=== PATIENT | male | born 1950 | race African-American/Black ===

== ENCOUNTER 2022-09-14 14:40 | Inpatient (IN) ==
[2022-09-14] MEDS ORDERED: ONDANSETRON 4 MG/2 ML VIAL IV STA (14:49)
[2022-09-14] MEDS ORDERED: SODIUM CHLORIDE 0.9% 1,000 ML IV STA (14:49)
[2022-09-14 16:12] LABS: Basophils % 0.1 % (0.0-0.8); Hematocrit 30.5 VOL% (42.0-52.0); Hemoglobin 10.2 GM/DL (14.0-18.0); Immature Granulocytes % 1.5 %; Immature Granulocytes Absolute 0.24 #; Lymphocytes # 1.1 10*3/uL (1.4-4.0); Lymphocytes % 6.6 % (21.2-54.2); Mean Corpuscular HGB Conc 33.4 GM/DL (32-36); Mean Corpuscular Volume 90.2 FL (87-102); Mean Platelet Volume 12.5 FL (9.6-12.0); Monocytes # 1.3 10*3/uL (0.11-0.8); Monocytes % 8.2 % (1.7-12.7); Neutrophils % 83.6 % (38.7-73.9); Platelet Count 146 T/CUMM (130-400); Red Blood Count 3.38 MC/CUMM (3.8-5.5); Red Cell Distribution Width 14.5 % (9.3-17.3); White Blood Count 16.2 T/CUMM (4-12)
[2022-09-14 16:31] LABS: Bacteria,Urine Occasional /HPF (Few); Bilirubin,Urine Negative (Negative); Blood, Urine Small mg/dL (Negative); Glucose,Urine (UA) Negative (Negative); Hyaline Casts,Urine 38 /LPF (0-3); Ketones,Urine Negative (Negative); Mucus,Urine Occasional /LPF (Occasional); Nitrite,Urine Negative (Negative); Protein,Urine 30 mg/dL (Negative); RBC,Urine 4 /HPF (0-4); Squamous Epithelial Cell,Urine Occasional /HPF (0-10); Urine Appearance Slightly Hazy (Clear); Urine Color Amber (Yellow); Urine Specific Gravity 1.013 (1.001-1.035)
[2022-09-14 16:33] LABS: Albumin 2.6 G/DL (3.4-5.0); Bilirubin,Total 2.9 MG/DL (0.20-1.00); Calcium 8.6 MG/DL (8.5-10.1); Osmolality,Calculated 298.3 MOS/KG (273-304); Potassium 3.8 MMOL/L (3.5-5.1); Total Protein 6.4 G/DL (6.4-8.2)
[2022-09-14] MEDS ORDERED: DOCUSATE SODIUM 100 MG CAPSULE PO PRN (17:44)
[2022-09-14] MEDS ORDERED: hydrALAZINE 20 MG/1 ML VIAL IV PRN (17:44)
[2022-09-14] MEDS ORDERED: ONDANSETRON 4 MG/2 ML VIAL IV PRN (17:44)
[2022-09-14] MEDS ORDERED: ACETAMINOPHEN 325 MG TABLET PO PRN (17:44)
[2022-09-14] MEDS ORDERED: cloNIDine 0.1 MG TABLET PO PRN (17:48)
[2022-09-14 20:32] LABS: Thyroid Stimulating Hormone 1.89 uIU/ml (0.358-3.74)
[2022-09-14] MEDS: PANTOPRAZOLE 40 MG TABLET PO SCH (21:26)
[2022-09-14] MEDS: carvediloL 25 MG TABLET PO SCH (21:26)
[2022-09-14] MEDS: HEPARIN 5,000 UNIT/1 ML VIAL SUBCUT SCH (21:27)
[2022-09-14] MEDS: LACTATED RINGERS 1,000 ML IV SCH (21:28)
[2022-09-15] MEDS: LACTATED RINGERS 1,000 ML IV SCH ×3 (04:08→17:09)
[2022-09-15 06:26] LABS: Basophils % 0.1 % (0.0-0.8); Eosinophils % 0.3 % (0.00-10.9); Hematocrit 27.7 VOL% (42.0-52.0); Hemoglobin 9.4 GM/DL (14.0-18.0); Immature Granulocytes % 0.7 %; Immature Granulocytes Absolute 0.09 #; Lymphocytes # 1.4 10*3/uL (1.4-4.0); Lymphocytes % 11.1 % (21.2-54.2); Mean Corpuscular HGB Conc 33.9 GM/DL (32-36); Mean Corpuscular Volume 90.5 FL (87-102); Monocytes % 7.8 % (1.7-12.7); Platelet Count 150 T/CUMM (130-400); Red Blood Count 3.06 MC/CUMM (3.8-5.5); Red Cell Distribution Width 14.7 % (9.3-17.3); White Blood Count 12.8 T/CUMM (4-12)
[2022-09-15 06:46] LABS: Albumin 2.3 G/DL (3.4-5.0); Bilirubin,Total 1.5 MG/DL (0.20-1.00); Calcium 9.2 MG/DL (8.5-10.1); Potassium 3.8 MMOL/L (3.5-5.1); Total Protein 6.7 G/DL (6.4-8.2)
[2022-09-15 08:25] LABS: AFP Tumor 4.9 NG/ML (0-8); Cancer Antigen 19-9 186.84 U/ML (0-35)
[2022-09-15] MEDS: carvediloL 25 MG TABLET PO SCH ×2 (08:27→21:32)
[2022-09-15] MEDS: PANTOPRAZOLE 40 MG TABLET PO SCH ×2 (08:27→21:32)
[2022-09-15] MEDS: ASPIRIN EC 81 MG TABLET PO SCH (08:28)
[2022-09-15] MEDS: HEPARIN 5,000 UNIT/1 ML VIAL SUBCUT SCH ×2 (08:28→21:32)
[2022-09-15 11:57] LABS: Hepatitis B Core IgM Quant 0.05 Index; Hepatitis B Surface Ag Quant 0.13 Index; Hepatitis B Surface Ag Result Non-Reactive (NonReactive); Hepatitis C Virus Ab Quant < 0.02 Index; Hepatitis C Virus Ab Result Non-Reactive (NonReactive)
[2022-09-15] MEDS ORDERED: DIAZEPAM 5 MG TABLET PO ONE (12:44)
[2022-09-15] MEDS: diphenhydrAMINE CAP 25 MG CAPSULE PO PRN (23:36)
[2022-09-16] MEDS: LACTATED RINGERS 1,000 ML IV SCH ×2 (03:10→09:05)
[2022-09-16 05:27] LABS: Basophils % 0.2 % (0.0-0.8); Eosinophils # 0.1 10*3/uL (0.0-0.87); Eosinophils % 0.6 % (0.00-10.9); Hematocrit 28.4 VOL% (42.0-52.0); Hemoglobin 9.3 GM/DL (14.0-18.0); Immature Granulocytes % 0.6 %; Immature Granulocytes Absolute 0.05 #; Lymphocytes # 1.1 10*3/uL (1.4-4.0); Lymphocytes % 13.7 % (21.2-54.2); Mean Corpuscular HGB Conc 32.7 GM/DL (32-36); Mean Corpuscular Volume 92.2 FL (87-102); Mean Platelet Volume 12.4 FL (9.6-12.0); Monocytes # 0.5 10*3/uL (0.11-0.8); Monocytes % 5.9 % (1.7-12.7); Platelet Count 153 T/CUMM (130-400); Red Blood Count 3.08 MC/CUMM (3.8-5.5); Red Cell Distribution Width 14.8 % (9.3-17.3); White Blood Count 8.1 T/CUMM (4-12)
[2022-09-16 05:49] LABS: Albumin 2.2 G/DL (3.4-5.0); Bilirubin,Total 1.2 MG/DL (0.20-1.00); Calcium 9.1 MG/DL (8.5-10.1); Osmolality,Calculated 297.7 MOS/KG (273-304); Potassium 3.8 MMOL/L (3.5-5.1); Total Protein 6.5 G/DL (6.4-8.2)
[2022-09-16] MEDS: diphenhydrAMINE CAP 25 MG CAPSULE PO PRN ×3 (05:55→19:42)
[2022-09-16] MEDS: carvediloL 25 MG TABLET PO SCH ×2 (09:00→21:36)
[2022-09-16] MEDS: PANTOPRAZOLE 40 MG TABLET PO SCH ×2 (09:00→21:36)
[2022-09-16] MEDS: ASPIRIN EC 81 MG TABLET PO SCH (09:00)
[2022-09-16] MEDS: HEPARIN 5,000 UNIT/1 ML VIAL SUBCUT SCH ×2 (09:00→21:36)
[2022-09-16 10:09] LABS: INR 1.1; PT Patient Result 11.7 SECS (10.1-12.1)
[2022-09-17] MEDS: LACTATED RINGERS 1,000 ML IV SCH (00:59)
[2022-09-17 05:52] LABS: Basophils % 0.1 % (0.0-0.8); Eosinophils # 0.1 10*3/uL (0.0-0.87); Eosinophils % 1.5 % (0.00-10.9); Hematocrit 28.9 VOL% (42.0-52.0); Hemoglobin 9.4 GM/DL (14.0-18.0); Immature Granulocytes % 0.9 %; Immature Granulocytes Absolute 0.07 #; Lymphocytes # 1.2 10*3/uL (1.4-4.0); Lymphocytes % 15.4 % (21.2-54.2); Mean Corpuscular HGB Conc 32.5 GM/DL (32-36); Mean Platelet Volume 12.7 FL (9.6-12.0); Monocytes # 0.5 10*3/uL (0.11-0.8); Monocytes % 6.5 % (1.7-12.7); Neutrophils % 75.6 % (38.7-73.9); Platelet Count 165 T/CUMM (130-400); Red Blood Count 3.14 MC/CUMM (3.8-5.5); Red Cell Distribution Width 14.7 % (9.3-17.3)
[2022-09-17 06:21] LABS: Albumin 2.4 G/DL (3.4-5.0); Bilirubin,Total 1.1 MG/DL (0.20-1.00); Calcium 9.2 MG/DL (8.5-10.1); Osmolality,Calculated 293.7 MOS/KG (273-304); Potassium 3.7 MMOL/L (3.5-5.1); Total Protein 6.7 G/DL (6.4-8.2)
[2022-09-17 07:51] VITALS: BP 176/80
[2022-09-17] MEDS: ASPIRIN EC 81 MG TABLET PO SCH (09:31)
[2022-09-17] MEDS: HEPARIN 5,000 UNIT/1 ML VIAL SUBCUT SCH (09:31)
[2022-09-17] MEDS: carvediloL 25 MG TABLET PO SCH (09:32)
[2022-09-17] MEDS: PANTOPRAZOLE 40 MG TABLET PO SCH (09:32)
== END 2022-09-17 12:59 | disposition home health service (06) | DRG 435 ==
LOC: EDBD → N.ED 14:40 → SUATTDRO 17:28 → N.EDINP 17:28 → N.3E 20:06
PROVIDERS: ADMIT Internal Medicine; ATTEND Internal Medicine

== ENCOUNTER 2022-10-03 17:37 | Inpatient (IN) ==
[2022-10-03] MEDS ORDERED: MORPHINE 2 MG/1 ML SYRINGE IV ONE (18:00)
[2022-10-03] MEDS ORDERED: SODIUM CHLORIDE 0.9% 500 ML IV STA (18:00)
[2022-10-03] MEDS ORDERED: ONDANSETRON 4 MG/2 ML VIAL IV ONE (18:00)
[2022-10-03 18:31] LABS: Basophils % 0.2 % (0.0-0.8); Eosinophils % 0.1 % (0.00-10.9); Hematocrit 26.1 VOL% (42.0-52.0); Hemoglobin 8.4 GM/DL (14.0-18.0); Immature Granulocytes % 1.2 %; Immature Granulocytes Absolute 0.22 #; Lymphocytes # 1.5 10*3/uL (1.4-4.0); Lymphocytes % 8.2 % (21.2-54.2); Mean Corpuscular HGB Conc 32.2 GM/DL (32-36); Mean Corpuscular Volume 92.6 FL (87-102); Mean Platelet Volume 12.2 FL (9.6-12.0); Monocytes # 2.2 10*3/uL (0.11-0.8); Monocytes % 12.2 % (1.7-12.7); NRBC # 0.02 10*3/uL; Neutrophils % 78.1 % (38.7-73.9); Platelet Count 210 T/CUMM (130-400); Red Blood Count 2.82 MC/CUMM (3.8-5.5); Red Cell Distribution Width 15.1 % (9.3-17.3); White Blood Count 17.9 T/CUMM (4-12)
[2022-10-03 18:42] LABS: INR 1.3
[2022-10-03 18:54] LABS: Albumin 2.4 G/DL (3.4-5.0); Bilirubin,Total 1.7 MG/DL (0.20-1.00); Potassium 3.9 MMOL/L (3.5-5.1); Total Protein 7.2 G/DL (6.4-8.2)
[2022-10-03] MEDS ORDERED: PIPERACILLIN/TAZOBACTAM 3,375 MG in SODIUM CHLORIDE 0.9% 100 ML IV STA (19:31)
[2022-10-03] MEDS ORDERED: cloNIDine 0.1 MG TABLET PO PRN (20:06)
[2022-10-03] MEDS ORDERED: ONDANSETRON 4 MG/2 ML VIAL IV PRN (20:16)
[2022-10-03] MEDS ORDERED: GLUCAGON 1 MG VIAL IM PRN (20:16)
[2022-10-03] MEDS ORDERED: hydrALAZINE 20 MG/1 ML VIAL IV PRN (20:16)
[2022-10-03] MEDS ORDERED: carvediloL 25 MG TABLET PO SCH (21:00)
[2022-10-03] MEDS: LACTATED RINGERS 1,000 ML IV SCH (21:21)
[2022-10-03] MEDS: INSULIN LISPRO 100 UNIT/ML SUBCUT SCH (21:22)
[2022-10-03] MEDS: HEPARIN 5,000 UNIT/1 ML VIAL SUBCUT SCH (21:27)
[2022-10-03] MEDS: MORPHINE 2 MG/1 ML SYRINGE IV PRN (22:28)
[2022-10-04] MEDS: MORPHINE 2 MG/1 ML SYRINGE IV PRN ×2 (02:14→11:57)
[2022-10-04] MEDS: PIPERACILLIN/TAZOBACTAM 3,375 MG in SODIUM CHLORIDE 0.9% 100 ML IV SCH ×3 (04:15→20:13)
[2022-10-04 05:10] LABS: Basophils % 0.2 % (0.0-0.8); Eosinophils % 0.2 % (0.00-10.9); Hematocrit 24.8 VOL% (42.0-52.0); Hemoglobin 7.8 GM/DL (14.0-18.0); Immature Granulocytes % 1.5 %; Immature Granulocytes Absolute 0.28 #; Lymphocytes # 1.5 10*3/uL (1.4-4.0); Lymphocytes % 8.3 % (21.2-54.2); Mean Corpuscular HGB Conc 31.5 GM/DL (32-36); Mean Corpuscular Volume 94.3 FL (87-102); Mean Platelet Volume 11.7 FL (9.6-12.0); Monocytes # 2.2 10*3/uL (0.11-0.8); Monocytes % 12.2 % (1.7-12.7); NRBC # 0.02 10*3/uL; Neutrophils % 77.6 % (38.7-73.9); Platelet Count 179 T/CUMM (130-400); Red Blood Count 2.63 MC/CUMM (3.8-5.5); Red Cell Distribution Width 15.2 % (9.3-17.3); White Blood Count 18.4 T/CUMM (4-12)
[2022-10-04 05:28] LABS: Albumin 2.2 G/DL (3.4-5.0); Bilirubin,Total 1.8 MG/DL (0.20-1.00); Calcium 9.1 MG/DL (8.5-10.1); Osmolality,Calculated 296.8 MOS/KG (273-304); Potassium 4.3 MMOL/L (3.5-5.1)
[2022-10-04] MEDS: INSULIN LISPRO 100 UNIT/ML SUBCUT SCH ×2 (08:03→17:32)
[2022-10-04] MEDS ORDERED: FUROSEMIDE 40 MG TABLET PO SCH (09:00)
[2022-10-04] MEDS: ISOSORBIDE MONONITRATE 30 MG TABLET PO SCH (10:10)
[2022-10-04] MEDS: carvediloL 25 MG TABLET PO SCH ×2 (10:11→17:32)
[2022-10-04] MEDS: PANTOPRAZOLE 40 MG VIAL IV SCH (10:11)
[2022-10-04] MEDS: HEPARIN 5,000 UNIT/1 ML VIAL SUBCUT SCH ×2 (10:11→20:14)
[2022-10-04] MEDS: LACTATED RINGERS 1,000 ML IV SCH ×2 (10:42→18:42)
[2022-10-04 11:58] LABS: Amorphous Crystals,Urine Many /HPF (Few); RBC,Urine 2 /HPF (0-4)
[2022-10-04 11:59] LABS: Urine Color Dark yellow (Yellow)
[2022-10-04 12:00] LABS: Bilirubin,Urine Small mg/dL (Negative); Blood, Urine Negative (Negative); Glucose,Urine (UA) Negative (Negative); Ketones,Urine Trace mg/dL (Negative); Nitrite,Urine Negative (Negative); Protein,Urine 100 mg/dL (Negative); Urine Appearance Turbid (Clear); Urine Specific Gravity 1.025 (1.001-1.035); Urine Urobilinogen < 2.0 eU/dL (<2.0); Urine pH 5.5 (4.5-8.0)
[2022-10-04] MEDS ORDERED: DIAZEPAM 5 MG TABLET PO ONE (14:52)
[2022-10-04] MEDS ORDERED: MIDAZOLAM 2 MG/2 ML VIAL IV ONE (14:53)
[2022-10-04] MEDS ORDERED: fentaNYL 100 MCG/2 ML VIAL IV ONE (14:53)
[2022-10-05] MEDS: PIPERACILLIN/TAZOBACTAM 3,375 MG in SODIUM CHLORIDE 0.9% 100 ML IV SCH ×3 (04:26→20:33)
[2022-10-05 05:16] LABS: Basophils % 0.2 % (0.0-0.8); Eosinophils # 0.1 10*3/uL (0.0-0.87); Eosinophils % 0.3 % (0.00-10.9); Hematocrit 24.1 VOL% (42.0-52.0); Hemoglobin 7.7 GM/DL (14.0-18.0); Immature Granulocytes % 1.9 %; Immature Granulocytes Absolute 0.28 #; Lymphocytes # 1.7 10*3/uL (1.4-4.0); Lymphocytes % 11.2 % (21.2-54.2); Mean Corpuscular Volume 91.6 FL (87-102); Mean Platelet Volume 12.9 FL (9.6-12.0); Monocytes # 1.5 10*3/uL (0.11-0.8); NRBC # 0.05 10*3/uL; Neutrophils % 76.4 % (38.7-73.9); Platelet Count 196 T/CUMM (130-400); Red Blood Count 2.63 MC/CUMM (3.8-5.5); Red Cell Distribution Width 15.5 % (9.3-17.3); White Blood Count 14.8 T/CUMM (4-12)
[2022-10-05] MEDS: LACTATED RINGERS 1,000 ML IV SCH ×3 (05:33→22:39)
[2022-10-05 05:42] LABS: Bilirubin,Total 1.9 MG/DL (0.20-1.00); Calcium 8.8 MG/DL (8.5-10.1); Osmolality,Calculated 301.7 MOS/KG (273-304); Potassium 4.3 MMOL/L (3.5-5.1); Total Protein 6.8 G/DL (6.4-8.2)
[2022-10-05] MEDS: carvediloL 25 MG TABLET PO SCH ×2 (08:11→16:09)
[2022-10-05] MEDS: PANTOPRAZOLE 40 MG VIAL IV SCH (08:11)
[2022-10-05] MEDS: ISOSORBIDE MONONITRATE 30 MG TABLET PO SCH (08:11)
[2022-10-05] MEDS: HEPARIN 5,000 UNIT/1 ML VIAL SUBCUT SCH ×2 (08:12→20:37)
[2022-10-05] MEDS: INSULIN LISPRO 100 UNIT/ML SUBCUT SCH ×2 (08:29→17:04)
[2022-10-05] MEDS: MORPHINE 2 MG/1 ML SYRINGE IV PRN (11:14)
[2022-10-05] MEDS: diphenhydrAMINE 50 MG/1 ML VIAL IV PRN (16:10)
[2022-10-06] MEDS: PIPERACILLIN/TAZOBACTAM 3,375 MG in SODIUM CHLORIDE 0.9% 100 ML IV SCH ×3 (04:12→20:28)
[2022-10-06] MEDS: MORPHINE 2 MG/1 ML SYRINGE IV PRN ×2 (05:43→14:37)
[2022-10-06 06:01] LABS: Basophils % 0.2 % (0.0-0.8); Eosinophils # 0.1 10*3/uL (0.0-0.87); Eosinophils % 0.6 % (0.00-10.9); Hematocrit 23.1 VOL% (42.0-52.0); Hemoglobin 7.2 GM/DL (14.0-18.0); Immature Granulocytes % 2.4 %; Immature Granulocytes Absolute 0.33 #; Lymphocytes # 1.2 10*3/uL (1.4-4.0); Lymphocytes % 8.8 % (21.2-54.2); Mean Corpuscular HGB Conc 31.2 GM/DL (32-36); Mean Corpuscular Volume 91.7 FL (87-102); Mean Platelet Volume 12.4 FL (9.6-12.0); Monocytes # 1.4 10*3/uL (0.11-0.8); Monocytes % 9.7 % (1.7-12.7); NRBC # 0.03 10*3/uL; Neutrophils % 78.3 % (38.7-73.9); Platelet Count 217 T/CUMM (130-400); Red Blood Count 2.52 MC/CUMM (3.8-5.5); Red Cell Distribution Width 15.5 % (9.3-17.3)
[2022-10-06 06:22] LABS: Albumin 1.8 G/DL (3.4-5.0); Bilirubin,Total 2.1 MG/DL (0.20-1.00); Calcium 8.9 MG/DL (8.5-10.1); Osmolality,Calculated 304.7 MOS/KG (273-304); Potassium 3.7 MMOL/L (3.5-5.1); Total Protein 6.6 G/DL (6.4-8.2)
[2022-10-06] MEDS: LACTATED RINGERS 1,000 ML IV SCH ×2 (07:33→18:30)
[2022-10-06] MEDS: INSULIN LISPRO 100 UNIT/ML SUBCUT SCH ×2 (07:35→17:04)
[2022-10-06] MEDS: PANTOPRAZOLE 40 MG VIAL IV SCH (09:02)
[2022-10-06] MEDS: carvediloL 25 MG TABLET PO SCH ×2 (09:04→17:04)
[2022-10-06] MEDS: ISOSORBIDE MONONITRATE 30 MG TABLET PO SCH (09:04)
[2022-10-06] MEDS: HEPARIN 5,000 UNIT/1 ML VIAL SUBCUT SCH ×2 (09:05→20:30)
[2022-10-07] MEDS: LACTATED RINGERS 1,000 ML IV SCH ×2 (04:03→16:36)
[2022-10-07] MEDS: PIPERACILLIN/TAZOBACTAM 3,375 MG in SODIUM CHLORIDE 0.9% 100 ML IV SCH ×3 (04:04→21:11)
[2022-10-07 06:27] LABS: Basophils % 0.1 % (0.0-0.8); Eosinophils # 0.2 10*3/uL (0.0-0.87); Eosinophils % 1.1 % (0.00-10.9); Immature Granulocytes % 4.2 %; Immature Granulocytes Absolute 0.67 #; Lymphocytes # 1.7 10*3/uL (1.4-4.0); Lymphocytes % 10.9 % (21.2-54.2); Mean Corpuscular HGB Conc 31.8 GM/DL (32-36); Mean Corpuscular Volume 91.3 FL (87-102); Mean Platelet Volume 12.5 FL (9.6-12.0); Monocytes # 1.6 10*3/uL (0.11-0.8); Monocytes % 10.3 % (1.7-12.7); NRBC # 0.05 10*3/uL; Neutrophils % 73.4 % (38.7-73.9); Platelet Count 232 T/CUMM (130-400); Red Blood Count 2.41 MC/CUMM (3.8-5.5); Red Cell Distribution Width 15.5 % (9.3-17.3); White Blood Count 15.9 T/CUMM (4-12)
[2022-10-07 06:52] LABS: Anisocytosis 2+; Band Neutrophils 18 % (0-10); Eosinophils 2 % (0-10); Lymphocytes 13 % (20-55); Metamyelocytes 1 %; Myelocytes 1 %; Platelet Estimate Normal; Total Cells Counted 100
[2022-10-07 06:53] LABS: Hypochromia 1+; Ovalocytes Few; Poikilocytosis Slight; Target Cells Few; Tear Drop Cells Few
[2022-10-07] MEDS: INSULIN LISPRO 100 UNIT/ML SUBCUT SCH ×2 (07:29→16:37)
[2022-10-07] MEDS: ISOSORBIDE MONONITRATE 30 MG TABLET PO SCH (08:18)
[2022-10-07] MEDS: diphenhydrAMINE 50 MG/1 ML VIAL IV PRN ×2 (08:19→21:12)
[2022-10-07] MEDS: PANTOPRAZOLE 40 MG VIAL IV SCH (08:19)
[2022-10-07] MEDS: carvediloL 25 MG TABLET PO SCH ×2 (08:19→16:06)
[2022-10-07] MEDS: HEPARIN 5,000 UNIT/1 ML VIAL SUBCUT SCH ×2 (08:19→21:12)
[2022-10-07 08:28] LABS: Albumin 1.7 G/DL (3.4-5.0); Calcium 8.8 MG/DL (8.5-10.1); Osmolality,Calculated 306.6 MOS/KG (273-304); Potassium 3.6 MMOL/L (3.5-5.1); Total Protein 6.6 G/DL (6.4-8.2)
[2022-10-07] MEDS ORDERED: SODIUM CHLORIDE 0.9% 1,000 ML IV PRN (08:34)
[2022-10-07 18:26] LABS: Hematocrit 26.2 VOL% (42.0-52.0); Hemoglobin 8.5 GM/DL (14.0-18.0)
[2022-10-07] MEDS: DOCUSATE SODIUM 100 MG CAPSULE PO SCH (21:12)
[2022-10-08] MEDS: LACTATED RINGERS 1,000 ML IV SCH ×3 (01:15→21:03)
[2022-10-08] MEDS: PIPERACILLIN/TAZOBACTAM 3,375 MG in SODIUM CHLORIDE 0.9% 100 ML IV SCH ×3 (04:34→21:00)
[2022-10-08 05:45] LABS: Basophils % 0.2 % (0.0-0.8); Eosinophils # 0.2 10*3/uL (0.0-0.87); Eosinophils % 0.9 % (0.00-10.9); Hematocrit 27.2 VOL% (42.0-52.0); Hemoglobin 8.8 GM/DL (14.0-18.0); Immature Granulocytes % 4.5 %; Immature Granulocytes Absolute 0.87 #; Lymphocytes # 1.6 10*3/uL (1.4-4.0); Lymphocytes % 8.4 % (21.2-54.2); Mean Corpuscular HGB Conc 32.4 GM/DL (32-36); Mean Corpuscular Volume 88.3 FL (87-102); Mean Platelet Volume 11.3 FL (9.6-12.0); Monocytes # 1.8 10*3/uL (0.11-0.8); Monocytes % 9.2 % (1.7-12.7); NRBC # 0.08 10*3/uL; Neutrophils % 76.8 % (38.7-73.9); Platelet Count 257 T/CUMM (130-400); Red Blood Count 3.08 MC/CUMM (3.8-5.5); Red Cell Distribution Width 15.8 % (9.3-17.3); White Blood Count 19.2 T/CUMM (4-12)
[2022-10-08 06:06] LABS: Eosinophils 1 % (0-10); Lymphocytes 6 % (20-55); Platelet Estimate Normal; Total Cells Counted 100
[2022-10-08 06:07] LABS: Hypochromia Slight
[2022-10-08 06:23] LABS: Albumin 1.7 G/DL (3.4-5.0); Bilirubin,Total 2.2 MG/DL (0.20-1.00); Calcium 9.1 MG/DL (8.5-10.1); Osmolality,Calculated 301.8 MOS/KG (273-304); Potassium 3.6 MMOL/L (3.5-5.1); Total Protein 6.7 G/DL (6.4-8.2)
[2022-10-08] MEDS: diphenhydrAMINE 50 MG/1 ML VIAL IV PRN ×2 (07:05→21:00)
[2022-10-08] MEDS: HEPARIN 5,000 UNIT/1 ML VIAL SUBCUT SCH ×2 (08:04→21:00)
[2022-10-08] MEDS: DOCUSATE SODIUM 100 MG CAPSULE PO SCH ×2 (08:04→21:01)
[2022-10-08] MEDS: ISOSORBIDE MONONITRATE 30 MG TABLET PO SCH (08:04)
[2022-10-08] MEDS: INSULIN LISPRO 100 UNIT/ML SUBCUT SCH ×2 (08:04→16:48)
[2022-10-08] MEDS: carvediloL 25 MG TABLET PO SCH ×2 (08:04→16:36)
[2022-10-08] MEDS: PANTOPRAZOLE 40 MG VIAL IV SCH (08:04)
[2022-10-08] MEDS: POLYETHYLENE GLYCOL POWDER 17 GM PACK PO PRN (11:43)
[2022-10-08] MEDS ORDERED: SODIUM PHOSPHATE ENEMA 133 ML BOTTLE RECTAL ONE (17:00)
[2022-10-09] MEDS: PIPERACILLIN/TAZOBACTAM 3,375 MG in SODIUM CHLORIDE 0.9% 100 ML IV SCH ×3 (03:56→19:32)
[2022-10-09 05:30] LABS: Basophils # 0.1 10*3/uL (0.0-0.2); Basophils % 0.3 % (0.0-0.8); Eosinophils # 0.2 10*3/uL (0.0-0.87); Eosinophils % 0.9 % (0.00-10.9); Hematocrit 27.5 VOL% (42.0-52.0); Hemoglobin 8.8 GM/DL (14.0-18.0); Immature Granulocytes % 5.3 %; Immature Granulocytes Absolute 1.08 #; Lymphocytes # 1.7 10*3/uL (1.4-4.0); Lymphocytes % 8.2 % (21.2-54.2); Mean Corpuscular Volume 90.2 FL (87-102); Mean Platelet Volume 11.7 FL (9.6-12.0); Monocytes # 1.9 10*3/uL (0.11-0.8); Monocytes % 9.5 % (1.7-12.7); NRBC # 0.05 10*3/uL; Neutrophils % 75.8 % (38.7-73.9); Platelet Count 270 T/CUMM (130-400); Red Blood Count 3.05 MC/CUMM (3.8-5.5); Red Cell Distribution Width 16.1 % (9.3-17.3); White Blood Count 20.2 T/CUMM (4-12)
[2022-10-09 06:17] LABS: Band Neutrophils 2 % (0-10); Eosinophils 1 % (0-10); Lymphocytes 9 % (20-55); Microcytosis Slight; Polychromasia Slight; Total Cells Counted 100
[2022-10-09 06:18] LABS: Platelet Estimate Normal
[2022-10-09 06:30] LABS: Albumin 1.6 G/DL (3.4-5.0); Bilirubin,Total 2.2 MG/DL (0.20-1.00); Calcium 8.8 MG/DL (8.5-10.1); Osmolality,Calculated 308.1 MOS/KG (273-304); Potassium 3.3 MMOL/L (3.5-5.1); Total Protein 6.6 G/DL (6.4-8.2)
[2022-10-09] MEDS: LACTATED RINGERS 1,000 ML IV SCH (07:36)
[2022-10-09] MEDS: INSULIN LISPRO 100 UNIT/ML SUBCUT SCH (08:15)
[2022-10-09] MEDS: DOCUSATE SODIUM 100 MG CAPSULE PO SCH ×2 (08:17→20:24)
[2022-10-09] MEDS: PANTOPRAZOLE 40 MG VIAL IV SCH (08:17)
[2022-10-09] MEDS: carvediloL 25 MG TABLET PO SCH ×2 (08:17→16:19)
[2022-10-09] MEDS: ISOSORBIDE MONONITRATE 30 MG TABLET PO SCH (08:17)
[2022-10-09] MEDS: HEPARIN 5,000 UNIT/1 ML VIAL SUBCUT SCH ×2 (08:17→20:23)
[2022-10-09] MEDS ORDERED: POTASSIUM CHLORIDE 20 MEQ TABLET PO ONE (09:41)
[2022-10-09] MEDS: DEXTROSE 5% 1,000 ML IV SCH (10:41)
[2022-10-09] MEDS ORDERED: BISACODYL 10 MG SUPP RECTAL PRN (12:29)
[2022-10-09] MEDS ORDERED: BISACODYL 10 MG SUPP RECTAL ONE (12:29)
[2022-10-09] MEDS: ALBUTEROL/IPRATROPIUM 3 ML NEB RESP TX SCH ×2 (13:28→20:09)
[2022-10-09] MEDS: MORPHINE 2 MG/1 ML SYRINGE IV PRN ×2 (14:12→19:31)
[2022-10-09] MEDS ORDERED: FUROSEMIDE 40 MG TABLET PO ONE (14:56)
[2022-10-09 16:49] LABS: Urine Appearance Clear (Clear); Urine Color Yellow (Yellow)
[2022-10-09 16:50] LABS: Bilirubin,Urine Moderate mg/dL (Negative); Blood, Urine Negative (Negative); Glucose,Urine (UA) Negative (Negative); Ketones,Urine Negative (Negative); Nitrite,Urine Negative (Negative); Protein,Urine 100 mg/dL (Negative); Urine Specific Gravity >= 1.030 (1.001-1.035); Urine Urobilinogen >= 8.0 eU/dL (<2.0); Urine pH 5.5 (4.5-8.0)
[2022-10-09 16:53] LABS: Mucus,Urine Occasional /LPF (Occasional); RBC,Urine 2 /HPF (0-4); Squamous Epithelial Cell,Urine Occasional /HPF (0-10)
[2022-10-09] MEDS ORDERED: VANCOMYCIN INJ 1,250 MG in SODIUM CHLORIDE 0.9% 250 ML IV SCH (18:00)
[2022-10-10] MEDS: DEXTROSE 5% 1,000 ML IV SCH ×3 (00:10→19:58)
[2022-10-10] MEDS: ALBUTEROL/IPRATROPIUM 3 ML NEB RESP TX SCH ×4 (00:20→19:06)
[2022-10-10] MEDS: PIPERACILLIN/TAZOBACTAM 3,375 MG in SODIUM CHLORIDE 0.9% 100 ML IV SCH ×2 (03:17→12:10)
[2022-10-10 07:10] LABS: Basophils % 0.2 % (0.0-0.8); Eosinophils # 0.2 10*3/uL (0.0-0.87); Eosinophils % 1.1 % (0.00-10.9); Hematocrit 27.3 VOL% (42.0-52.0); Hemoglobin 8.8 GM/DL (14.0-18.0); Immature Granulocytes % 6.3 %; Immature Granulocytes Absolute 1.05 #; Lymphocytes # 1.6 10*3/uL (1.4-4.0); Lymphocytes % 9.4 % (21.2-54.2); Mean Corpuscular HGB Conc 32.2 GM/DL (32-36); Mean Corpuscular Volume 89.5 FL (87-102); Mean Platelet Volume 11.7 FL (9.6-12.0); Monocytes # 1.4 10*3/uL (0.11-0.8); Monocytes % 8.5 % (1.7-12.7); NRBC # 0.04 10*3/uL; Neutrophils % 74.5 % (38.7-73.9); Platelet Count 265 T/CUMM (130-400); Red Blood Count 3.05 MC/CUMM (3.8-5.5); White Blood Count 16.8 T/CUMM (4-12)
[2022-10-10 07:33] LABS: Eosinophils 2 % (0-10); Hypochromia Slight; Lymphocytes 8 % (20-55); Microcytosis Slight; Platelet Estimate Adequate; Total Cells Counted 100
[2022-10-10 07:48] LABS: Albumin 1.6 G/DL (3.4-5.0); Bilirubin,Total 1.9 MG/DL (0.20-1.00); Calcium 8.8 MG/DL (8.5-10.1); Osmolality,Calculated 302.6 MOS/KG (273-304); Potassium 3.2 MMOL/L (3.5-5.1); Total Protein 6.4 G/DL (6.4-8.2)
[2022-10-10] MEDS ORDERED: POTASSIUM CHLORIDE 20 MEQ TABLET PO ONE ×2 (08:30→12:00)
[2022-10-10] MEDS: carvediloL 25 MG TABLET PO SCH ×2 (08:38→16:25)
[2022-10-10] MEDS: DOCUSATE SODIUM 100 MG CAPSULE PO SCH ×2 (08:38→20:01)
[2022-10-10] MEDS: ISOSORBIDE MONONITRATE 30 MG TABLET PO SCH (08:38)
[2022-10-10] MEDS: POLYETHYLENE GLYCOL POWDER 17 GM PACK PO SCH (08:39)
[2022-10-10] MEDS: PANTOPRAZOLE 40 MG VIAL IV SCH (08:40)
[2022-10-10] MEDS: HEPARIN 5,000 UNIT/1 ML VIAL SUBCUT SCH ×2 (08:40→20:01)
[2022-10-10] MEDS: MORPHINE 2 MG/1 ML SYRINGE IV PRN ×3 (08:48→17:04)
[2022-10-10 18:19] LABS: Calcium 8.6 MG/DL (8.5-10.1); Osmolality,Calculated 299.7 MOS/KG (273-304)
[2022-10-10] MEDS: POLYETHYLENE GLYCOL POWDER 17 GM PACK PO PRN (23:52)
[2022-10-11] MEDS: ALBUTEROL/IPRATROPIUM 3 ML NEB RESP TX SCH ×4 (00:04→19:22)
[2022-10-11 05:20] LABS: Basophils # 0.1 10*3/uL (0.0-0.2); Basophils % 0.3 % (0.0-0.8); Eosinophils # 0.2 10*3/uL (0.0-0.87); Eosinophils % 0.8 % (0.00-10.9); Hematocrit 27.4 VOL% (42.0-52.0); Hemoglobin 8.8 GM/DL (14.0-18.0); Immature Granulocytes % 6.4 %; Immature Granulocytes Absolute 1.14 #; Lymphocytes # 1.6 10*3/uL (1.4-4.0); Lymphocytes % 8.8 % (21.2-54.2); Mean Corpuscular HGB Conc 32.1 GM/DL (32-36); Mean Corpuscular Volume 90.1 FL (87-102); Mean Platelet Volume 11.2 FL (9.6-12.0); Monocytes # 1.1 10*3/uL (0.11-0.8); Monocytes % 6.4 % (1.7-12.7); NRBC # 0.02 10*3/uL; Neutrophils % 77.3 % (38.7-73.9); Platelet Count 269 T/CUMM (130-400); Red Blood Count 3.04 MC/CUMM (3.8-5.5); Red Cell Distribution Width 16.1 % (9.3-17.3); White Blood Count 17.9 T/CUMM (4-12)
[2022-10-11 05:47] LABS: Albumin 1.7 G/DL (3.4-5.0); Bilirubin,Total 1.8 MG/DL (0.20-1.00); Osmolality,Calculated 297.7 MOS/KG (273-304); Potassium 3.7 MMOL/L (3.5-5.1); Total Protein 6.6 G/DL (6.4-8.2)
[2022-10-11 05:51] LABS: Eosinophils 1 % (0-10); Hypochromia Slight; Lymphocytes 9 % (20-55); Microcytosis Slight; Nucleated Red Blood Cells 1 /100 WBC (0-5); Platelet Estimate Adequate; Total Cells Counted 100
[2022-10-11] MEDS ORDERED: MEROPENEM 2,000 MG in SODIUM CHLORIDE 0.9% 100 ML IV SCH (08:30)
[2022-10-11] MEDS ORDERED: MEROPENEM 500 MG in SODIUM CHLORIDE 0.9% 100 ML IV SCH (08:30)
[2022-10-11] MEDS: carvediloL 25 MG TABLET PO SCH ×2 (10:02→16:43)
[2022-10-11] MEDS: ISOSORBIDE MONONITRATE 30 MG TABLET PO SCH (10:02)
[2022-10-11] MEDS: DOCUSATE SODIUM 100 MG CAPSULE PO SCH ×2 (10:02→21:20)
[2022-10-11] MEDS: POLYETHYLENE GLYCOL POWDER 17 GM PACK PO SCH (10:03)
[2022-10-11] MEDS: PANTOPRAZOLE 40 MG VIAL IV SCH (10:03)
[2022-10-11] MEDS: HEPARIN 5,000 UNIT/1 ML VIAL SUBCUT SCH (10:03)
[2022-10-11] MEDS ORDERED: BISACODYL 5 MG TABLET PO ONE (15:00)
[2022-10-11] MEDS ORDERED: POLYETHYLENE GLYCOL POWDER 255 GM BOTTLE PO ONE (18:00)
[2022-10-12] MEDS: ALBUTEROL/IPRATROPIUM 3 ML NEB RESP TX SCH ×4 (00:23→19:35)
[2022-10-12 04:50] LABS: Basophils % 0.2 % (0.0-0.8); Eosinophils # 0.1 10*3/uL (0.0-0.87); Eosinophils % 0.4 % (0.00-10.9); Hemoglobin 8.9 GM/DL (14.0-18.0); Immature Granulocytes Absolute 0.98 #; Lymphocytes # 1.6 10*3/uL (1.4-4.0); Mean Corpuscular HGB Conc 31.8 GM/DL (32-36); Mean Corpuscular Volume 90.9 FL (87-102); Mean Platelet Volume 11.1 FL (9.6-12.0); Monocytes # 1.1 10*3/uL (0.11-0.8); Monocytes % 5.5 % (1.7-12.7); NRBC # 0.04 10*3/uL; Neutrophils % 80.9 % (38.7-73.9); Platelet Count 260 T/CUMM (130-400); Red Blood Count 3.08 MC/CUMM (3.8-5.5); Red Cell Distribution Width 16.1 % (9.3-17.3); White Blood Count 19.6 T/CUMM (4-12)
[2022-10-12 05:00] LABS: INR 1.3; PT Patient Result 13.8 SECS (10.1-12.1)
[2022-10-12] MEDS ORDERED: POLYETHYLENE GLYCOL POWDER 255 GM BOTTLE PO ONE (05:00)
[2022-10-12 05:12] LABS: Band Neutrophils 1 % (0-10); Lymphocytes 6 % (20-55); Total Cells Counted 100
[2022-10-12 05:13] LABS: Hypochromia Slight; Microcytosis Slight; Platelet Estimate Adequate
[2022-10-12 05:22] LABS: Bilirubin,Total 1.9 MG/DL (0.20-1.00); Osmolality,Calculated 299.8 MOS/KG (273-304); Potassium 3.3 MMOL/L (3.5-5.1); Total Protein 6.7 G/DL (6.4-8.2)
[2022-10-12] MEDS ORDERED: POTASSIUM CHLORIDE 20 MEQ TABLET PO ONE (08:00)
[2022-10-12] MEDS ORDERED: LACTATED RINGERS 1,000 ML IV SCH (08:00)
[2022-10-12] MEDS: carvediloL 25 MG TABLET PO SCH ×2 (10:13→16:51)
[2022-10-12] MEDS: PANTOPRAZOLE 40 MG VIAL IV SCH (10:15)
[2022-10-12] MEDS: POLYETHYLENE GLYCOL POWDER 17 GM PACK PO SCH (10:19)
[2022-10-12] MEDS ORDERED: propofoL 200 MG/20 ML VIAL IV ONE (12:38)
[2022-10-12] MEDS ORDERED: LIDOCAINE 2% 5 ML VIAL ONE (12:38)
[2022-10-12] MEDS ORDERED: PHENYLEPHRINE 1 MG/10 ML SYRINGE IV ONE (12:48)
[2022-10-12] MEDS: DOCUSATE SODIUM 100 MG CAPSULE PO SCH ×2 (13:15→21:20)
[2022-10-12] MEDS: FUROSEMIDE 40 MG TABLET PO SCH (16:50)
[2022-10-12] MEDS: SPIRONOLACTONE 25 MG TABLET PO SCH (16:50)
[2022-10-12] MEDS: ISOSORBIDE MONONITRATE 30 MG TABLET PO SCH (16:50)
[2022-10-12] MEDS: diphenhydrAMINE 50 MG/1 ML VIAL IV PRN (21:37)
[2022-10-13] MEDS: ALBUTEROL/IPRATROPIUM 3 ML NEB RESP TX SCH ×4 (01:05→19:40)
[2022-10-13 06:05] LABS: Basophils # 0.1 10*3/uL (0.0-0.2); Basophils % 0.3 % (0.0-0.8); Eosinophils # 0.1 10*3/uL (0.0-0.87); Eosinophils % 0.5 % (0.00-10.9); Hematocrit 25.6 VOL% (42.0-52.0); Hemoglobin 8.1 GM/DL (14.0-18.0); Immature Granulocytes % 3.9 %; Immature Granulocytes Absolute 0.77 #; Lymphocytes # 1.8 10*3/uL (1.4-4.0); Lymphocytes % 8.9 % (21.2-54.2); Mean Corpuscular HGB Conc 31.6 GM/DL (32-36); Mean Corpuscular Volume 91.4 FL (87-102); Mean Platelet Volume 11.9 FL (9.6-12.0); Monocytes # 1.8 10*3/uL (0.11-0.8); Monocytes % 9.2 % (1.7-12.7); NRBC # 0.03 10*3/uL; Neutrophils % 77.2 % (38.7-73.9); Platelet Count 232 T/CUMM (130-400); Red Cell Distribution Width 16.2 % (9.3-17.3); White Blood Count 19.7 T/CUMM (4-12)
[2022-10-13 06:30] LABS: Albumin 1.9 G/DL (3.4-5.0); Bilirubin,Total 1.6 MG/DL (0.20-1.00); Calcium 8.9 MG/DL (8.5-10.1); Osmolality,Calculated 300.4 MOS/KG (273-304); Potassium 3.9 MMOL/L (3.5-5.1); Total Protein 6.4 G/DL (6.4-8.2)
[2022-10-13 06:36] LABS: Eosinophils 1 % (0-10); Hypochromia Slight; Lymphocytes 10 % (20-55); Microcytosis Slight; Platelet Estimate Adequate; Total Cells Counted 100
[2022-10-13] MEDS ORDERED: FUROSEMIDE 20 MG/2 ML VIAL IV ONE (08:00)
[2022-10-13] MEDS: POLYETHYLENE GLYCOL POWDER 17 GM PACK PO SCH (09:23)
[2022-10-13] MEDS: DOCUSATE SODIUM 100 MG CAPSULE PO SCH ×2 (09:24→20:34)
[2022-10-13] MEDS: ISOSORBIDE MONONITRATE 30 MG TABLET PO SCH (09:24)
[2022-10-13] MEDS: SPIRONOLACTONE 25 MG TABLET PO SCH (09:24)
[2022-10-13] MEDS: carvediloL 25 MG TABLET PO SCH ×2 (09:24→17:17)
[2022-10-13] MEDS: PANTOPRAZOLE 40 MG VIAL IV SCH (09:24)
[2022-10-14] MEDS: ALBUTEROL/IPRATROPIUM 3 ML NEB RESP TX SCH ×2 (03:00→07:25)
[2022-10-14 05:49] LABS: Basophils # 0.1 10*3/uL (0.0-0.2); Basophils % 0.3 % (0.0-0.8); Eosinophils # 0.1 10*3/uL (0.0-0.87); Eosinophils % 0.4 % (0.00-10.9); Hematocrit 25.4 VOL% (42.0-52.0); Hemoglobin 8.1 GM/DL (14.0-18.0); Immature Granulocytes % 2.8 %; Immature Granulocytes Absolute 0.55 #; Lymphocytes # 1.6 10*3/uL (1.4-4.0); Lymphocytes % 8.2 % (21.2-54.2); Mean Corpuscular HGB Conc 31.9 GM/DL (32-36); Mean Platelet Volume 11.8 FL (9.6-12.0); Monocytes # 1.6 10*3/uL (0.11-0.8); Monocytes % 8.3 % (1.7-12.7); NRBC # 0.02 10*3/uL; Platelet Count 232 T/CUMM (130-400); Red Blood Count 2.76 MC/CUMM (3.8-5.5); Red Cell Distribution Width 16.3 % (9.3-17.3); White Blood Count 19.4 T/CUMM (4-12)
[2022-10-14 06:13] LABS: Albumin 1.9 G/DL (3.4-5.0); Bilirubin,Total 1.5 MG/DL (0.20-1.00); Calcium 8.8 MG/DL (8.5-10.1); Osmolality,Calculated 294.8 MOS/KG (273-304); Potassium 3.9 MMOL/L (3.5-5.1); Total Protein 6.6 G/DL (6.4-8.2)
[2022-10-14 06:23] LABS: Band Neutrophils 2 % (0-10); Eosinophils 1 % (0-10); Hypochromia Slight; Lymphocytes 4 % (20-55); Platelet Estimate Adequate; Total Cells Counted 100
[2022-10-14] MEDS: SPIRONOLACTONE 25 MG TABLET PO SCH (09:08)
[2022-10-14] MEDS: PANTOPRAZOLE 40 MG VIAL IV SCH (09:08)
[2022-10-14] MEDS: POLYETHYLENE GLYCOL POWDER 17 GM PACK PO SCH (09:08)
[2022-10-14] MEDS: DOCUSATE SODIUM 100 MG CAPSULE PO SCH (09:08)
[2022-10-14] MEDS: ISOSORBIDE MONONITRATE 30 MG TABLET PO SCH (09:08)
[2022-10-14] MEDS: carvediloL 25 MG TABLET PO SCH (09:08)
[2022-10-14] MEDS: FUROSEMIDE 40 MG TABLET PO SCH (09:40)
[2022-10-14 10:50] VITALS: BP 118/51
== END 2022-10-14 12:05 | disposition home health service (06) | DRG 445 ==
LOC: N.EDINP 17:37 → N.ED 17:37 → SUATTDRO 20:16 → N.3E 20:57 → SUATTDRO 10-05 16:07
PROVIDERS: ADMIT Family Medicine; ATTEND Family Medicine

== ENCOUNTER 2022-10-27 11:15 | Inpatient (IN) ==
[2022-10-27] MEDS ORDERED: SODIUM CHLORIDE 0.9% 1,000 ML IV STA (11:45)
[2022-10-27] MEDS ORDERED: ONDANSETRON 4 MG/2 ML VIAL IV STA (11:45)
[2022-10-27] MEDS ORDERED: fentaNYL 100 MCG/2 ML VIAL IV ONE (13:21)
[2022-10-27] MEDS ORDERED: DIAZEPAM 5 MG TABLET PO ONE (13:21)
[2022-10-27] MEDS ORDERED: MIDAZOLAM 2 MG/2 ML VIAL IV ONE (13:21)
[2022-10-27 13:27] LABS: Basophils # 0.1 10*3/uL (0.0-0.2); Basophils % 0.4 % (0.0-0.8); Eosinophils # 0.2 10*3/uL (0.0-0.87); Eosinophils % 1.6 % (0.00-10.9); Hematocrit 24.7 VOL% (42.0-52.0); Hemoglobin 7.6 GM/DL (14.0-18.0); Immature Granulocytes % 2.6 %; Immature Granulocytes Absolute 0.39 #; Lymphocytes # 1.6 10*3/uL (1.4-4.0); Lymphocytes % 10.6 % (21.2-54.2); Mean Corpuscular HGB Conc 30.8 GM/DL (32-36); Mean Corpuscular Volume 92.5 FL (87-102); Monocytes # 1.3 10*3/uL (0.11-0.8); Monocytes % 8.3 % (1.7-12.7); NRBC # 0.05 10*3/uL; Neutrophils % 76.5 % (38.7-73.9); Platelet Count 246 T/CUMM (130-400); Red Blood Count 2.67 MC/CUMM (3.8-5.5); White Blood Count 15.2 T/CUMM (4-12)
[2022-10-27 13:37] LABS: INR 1.3; PT Patient Result 13.6 SECS (10.1-12.1); Partial Thromboplastin Time 29.9 SECS (23.7-32.9)
[2022-10-27] MEDS ORDERED: PIPERACILLIN/TAZOBACTAM 3,375 MG in SODIUM CHLORIDE 0.9% 100 ML IV STA (13:46)
[2022-10-27 13:53] LABS: Albumin 1.8 G/DL (3.4-5.0); Bilirubin,Total 2.4 MG/DL (0.20-1.00); Calcium 9.3 MG/DL (8.5-10.1); Osmolality,Calculated 320.7 MOS/KG (273-304); Potassium 4.5 MMOL/L (3.5-5.1)
[2022-10-27] MEDS ORDERED: MORPHINE 2 MG/1 ML SYRINGE IV PRN (15:10)
[2022-10-27] MEDS ORDERED: cloNIDine 0.1 MG TABLET PO PRN (15:15)
[2022-10-27] MEDS: HEPARIN 5,000 UNIT/1 ML VIAL SUBCUT SCH (17:23)
[2022-10-27] MEDS: DEXTROSE 5% 1,000 ML IV SCH (17:27)
[2022-10-27] MEDS ORDERED: PIPERACILLIN/TAZOBACTAM 2.25 MG in SODIUM CHLORIDE 0.9% 100 ML IV SCH (22:00)
[2022-10-27] MEDS: carvediloL 25 MG TABLET PO SCH (22:12)
[2022-10-27] MEDS: PIPERACILLIN/TAZOBACTAM 3,375 MG in SODIUM CHLORIDE 0.9% 100 ML IV SCH (22:28)
[2022-10-28] MEDS: DEXTROSE 5% 1,000 ML IV SCH ×2 (02:35→13:39)
[2022-10-28 04:59] LABS: Basophils # 0.1 10*3/uL (0.0-0.2); Basophils % 0.4 % (0.0-0.8); Eosinophils # 0.2 10*3/uL (0.0-0.87); Eosinophils % 1.2 % (0.00-10.9); Hematocrit 25.5 VOL% (42.0-52.0); Hemoglobin 7.8 GM/DL (14.0-18.0); Immature Granulocytes % 2.3 %; Lymphocytes % 7.8 % (21.2-54.2); Mean Corpuscular HGB Conc 30.6 GM/DL (32-36); Mean Corpuscular Volume 93.1 FL (87-102); Mean Platelet Volume 11.8 FL (9.6-12.0); Monocytes # 0.4 10*3/uL (0.11-0.8); Monocytes % 3.1 % (1.7-12.7); NRBC # 0.11 10*3/uL; Neutrophils % 85.2 % (38.7-73.9); Platelet Count 215 T/CUMM (130-400); Red Blood Count 2.74 MC/CUMM (3.8-5.5); Red Cell Distribution Width 19.2 % (9.3-17.3); White Blood Count 13.1 T/CUMM (4-12)
[2022-10-28 05:15] LABS: Osmolality,Calculated 314.3 MOS/KG (273-304); Potassium 4.2 MMOL/L (3.5-5.1)
[2022-10-28] MEDS: PIPERACILLIN/TAZOBACTAM 3,375 MG in SODIUM CHLORIDE 0.9% 100 ML IV SCH ×3 (06:39→21:54)
[2022-10-28] MEDS: carvediloL 25 MG TABLET PO SCH ×2 (08:42→21:53)
[2022-10-28] MEDS: ISOSORBIDE MONONITRATE 30 MG TABLET PO SCH (08:42)
[2022-10-28] MEDS: ASPIRIN EC 81 MG TABLET PO SCH (08:42)
[2022-10-28] MEDS: HEPARIN 5,000 UNIT/1 ML VIAL SUBCUT SCH ×4 (08:43→21:53)
[2022-10-29] MEDS: DEXTROSE 5% 1,000 ML IV SCH (03:20)
[2022-10-29] MEDS: PIPERACILLIN/TAZOBACTAM 3,375 MG in SODIUM CHLORIDE 0.9% 100 ML IV SCH ×2 (05:30→15:15)
[2022-10-29 06:24] LABS: Basophils # 0.1 10*3/uL (0.0-0.2); Basophils % 0.4 % (0.0-0.8); Eosinophils # 0.4 10*3/uL (0.0-0.87); Eosinophils % 2.4 % (0.00-10.9); Hematocrit 22.8 VOL% (42.0-52.0); Hemoglobin 7.1 GM/DL (14.0-18.0); Immature Granulocytes % 2.9 %; Immature Granulocytes Absolute 0.43 #; Lymphocytes # 1.7 10*3/uL (1.4-4.0); Lymphocytes % 11.5 % (21.2-54.2); Mean Corpuscular HGB Conc 31.1 GM/DL (32-36); Mean Corpuscular Volume 93.1 FL (87-102); Mean Platelet Volume 11.9 FL (9.6-12.0); Monocytes # 1.2 10*3/uL (0.11-0.8); Monocytes % 8.4 % (1.7-12.7); NRBC # 0.08 10*3/uL; Neutrophils % 74.4 % (38.7-73.9); Platelet Count 218 T/CUMM (130-400); Red Blood Count 2.45 MC/CUMM (3.8-5.5); Red Cell Distribution Width 19.1 % (9.3-17.3); White Blood Count 14.8 T/CUMM (4-12)
[2022-10-29 06:39] LABS: Calcium 8.7 MG/DL (8.5-10.1); Osmolality,Calculated 309.4 MOS/KG (273-304); Potassium 3.8 MMOL/L (3.5-5.1)
[2022-10-29] MEDS: ASPIRIN EC 81 MG TABLET PO SCH (09:22)
[2022-10-29] MEDS: ISOSORBIDE MONONITRATE 30 MG TABLET PO SCH (09:22)
[2022-10-29] MEDS: HEPARIN 5,000 UNIT/1 ML VIAL SUBCUT SCH ×2 (09:22→15:15)
[2022-10-29] MEDS: carvediloL 25 MG TABLET PO SCH ×2 (09:22→21:14)
[2022-10-30] MEDS: PIPERACILLIN/TAZOBACTAM 3,375 MG in SODIUM CHLORIDE 0.9% 100 ML IV SCH ×4 (00:14→23:30)
[2022-10-30] MEDS: HEPARIN 5,000 UNIT/1 ML VIAL SUBCUT SCH ×4 (00:14→23:30)
[2022-10-30 05:49] LABS: Basophils # 0.1 10*3/uL (0.0-0.2); Basophils % 0.4 % (0.0-0.8); Eosinophils # 0.3 10*3/uL (0.0-0.87); Eosinophils % 1.6 % (0.00-10.9); Hematocrit 22.6 VOL% (42.0-52.0); Hemoglobin 7.1 GM/DL (14.0-18.0); Immature Granulocytes % 2.3 %; Immature Granulocytes Absolute 0.36 #; Lymphocytes # 1.7 10*3/uL (1.4-4.0); Lymphocytes % 10.9 % (21.2-54.2); Mean Corpuscular HGB Conc 31.4 GM/DL (32-36); Mean Corpuscular Volume 93.4 FL (87-102); Mean Platelet Volume 11.8 FL (9.6-12.0); Monocytes # 1.3 10*3/uL (0.11-0.8); Monocytes % 8.1 % (1.7-12.7); NRBC # 0.06 10*3/uL; Neutrophils % 76.7 % (38.7-73.9); Platelet Count 215 T/CUMM (130-400); Red Blood Count 2.42 MC/CUMM (3.8-5.5); Red Cell Distribution Width 19.5 % (9.3-17.3); White Blood Count 15.4 T/CUMM (4-12)
[2022-10-30 06:10] LABS: Calcium 8.5 MG/DL (8.5-10.1); Osmolality,Calculated 311.3 MOS/KG (273-304); Potassium 3.6 MMOL/L (3.5-5.1)
[2022-10-30 06:14] LABS: Albumin 1.6 G/DL (3.4-5.0); Calcium 8.6 MG/DL (8.5-10.1); Osmolality,Calculated 310.3 MOS/KG (273-304); Potassium 3.6 MMOL/L (3.5-5.1); Total Protein 6.7 G/DL (6.4-8.2)
[2022-10-30] MEDS ORDERED: LACTULOSE 20 GM/30 ML UDCUP PO ONE (07:34)
[2022-10-30] MEDS: DEXTROSE 5% 1,000 ML IV SCH ×2 (07:56→11:01)
[2022-10-30] MEDS: ISOSORBIDE MONONITRATE 30 MG TABLET PO SCH (10:01)
[2022-10-30] MEDS: ASPIRIN EC 81 MG TABLET PO SCH (10:02)
[2022-10-30] MEDS: carvediloL 25 MG TABLET PO SCH ×2 (10:02→20:28)
[2022-10-31 04:19] LABS: Basophils % 0.2 % (0.0-0.8); Eosinophils # 0.2 10*3/uL (0.0-0.87); Eosinophils % 1.1 % (0.00-10.9); Hematocrit 20.4 VOL% (42.0-52.0); Immature Granulocytes % 2.4 %; Immature Granulocytes Absolute 0.44 #; Lymphocytes % 11.2 % (21.2-54.2); Mean Corpuscular HGB Conc 30.4 GM/DL (32-36); Mean Corpuscular Volume 93.2 FL (87-102); Mean Platelet Volume 12.3 FL (9.6-12.0); Monocytes # 1.8 10*3/uL (0.11-0.8); Monocytes % 10.1 % (1.7-12.7); NRBC # 0.08 10*3/uL; Platelet Count 220 T/CUMM (130-400); Red Blood Count 2.19 MC/CUMM (3.8-5.5); Red Cell Distribution Width 19.6 % (9.3-17.3)
[2022-10-31 04:24] LABS: Hemoglobin 6.2 GM/DL (14.0-18.0)
[2022-10-31 04:37] LABS: Albumin 1.7 G/DL (3.4-5.0); Bilirubin,Total 2.1 MG/DL (0.20-1.00); Calcium 8.3 MG/DL (8.5-10.1); Osmolality,Calculated 302.6 MOS/KG (273-304); Potassium 3.8 MMOL/L (3.5-5.1); Total Protein 6.9 G/DL (6.4-8.2)
[2022-10-31] MEDS ORDERED: SODIUM CHLORIDE 0.9% 1,000 ML IV PRN (05:51)
[2022-10-31] MEDS: PIPERACILLIN/TAZOBACTAM 3,375 MG in SODIUM CHLORIDE 0.9% 100 ML IV SCH ×3 (06:28→21:46)
[2022-10-31] MEDS: HEPARIN 5,000 UNIT/1 ML VIAL SUBCUT SCH ×2 (09:30→15:52)
[2022-10-31] MEDS: carvediloL 25 MG TABLET PO SCH ×2 (09:32→21:49)
[2022-10-31] MEDS: ASPIRIN EC 81 MG TABLET PO SCH (09:32)
[2022-10-31] MEDS: ISOSORBIDE MONONITRATE 30 MG TABLET PO SCH (09:32)
[2022-10-31] MEDS: DEXTROSE 5% 1,000 ML IV SCH (12:43)
[2022-10-31 17:42] LABS: Hematocrit 28.8 VOL% (42.0-52.0)
[2022-11-01] MEDS: DEXTROSE 5% 1,000 ML IV SCH ×2 (00:52→17:50)
[2022-11-01] MEDS: HEPARIN 5,000 UNIT/1 ML VIAL SUBCUT SCH ×3 (00:53→16:26)
[2022-11-01] MEDS: PIPERACILLIN/TAZOBACTAM 3,375 MG in SODIUM CHLORIDE 0.9% 100 ML IV SCH ×3 (05:50→21:44)
[2022-11-01 06:16] LABS: Basophils # 0.1 10*3/uL (0.0-0.2); Basophils % 0.5 % (0.0-0.8); Eosinophils # 0.1 10*3/uL (0.0-0.87); Eosinophils % 0.7 % (0.00-10.9); Hemoglobin 9.1 GM/DL (14.0-18.0); Immature Granulocytes % 2.2 %; Lymphocytes # 1.7 10*3/uL (1.4-4.0); Lymphocytes % 9.4 % (21.2-54.2); Mean Corpuscular HGB Conc 32.5 GM/DL (32-36); Mean Corpuscular Volume 90.6 FL (87-102); Mean Platelet Volume 12.4 FL (9.6-12.0); Monocytes % 10.6 % (1.7-12.7); NRBC # 0.06 10*3/uL; Neutrophils % 76.6 % (38.7-73.9); Platelet Count 219 T/CUMM (130-400); Red Blood Count 3.09 MC/CUMM (3.8-5.5); Red Cell Distribution Width 18.6 % (9.3-17.3); White Blood Count 18.4 T/CUMM (4-12)
[2022-11-01 06:31] LABS: Albumin 1.6 G/DL (3.4-5.0); Bilirubin,Total 2.4 MG/DL (0.20-1.00); Calcium 8.7 MG/DL (8.5-10.1); Osmolality,Calculated 298.8 MOS/KG (273-304); Potassium 3.4 MMOL/L (3.5-5.1); Total Protein 6.9 G/DL (6.4-8.2)
[2022-11-01] MEDS ORDERED: POTASSIUM CHLORIDE 20 MEQ TABLET PO ONE (07:47)
[2022-11-01] MEDS: ASPIRIN EC 81 MG TABLET PO SCH (09:01)
[2022-11-01] MEDS: ISOSORBIDE MONONITRATE 30 MG TABLET PO SCH (09:01)
[2022-11-01] MEDS: carvediloL 25 MG TABLET PO SCH ×2 (09:02→21:19)
[2022-11-02] MEDS: HEPARIN 5,000 UNIT/1 ML VIAL SUBCUT SCH ×2 (02:01→08:37)
[2022-11-02] MEDS: DEXTROSE 5% 1,000 ML IV SCH (03:46)
[2022-11-02 04:57] LABS: Basophils # 0.1 10*3/uL (0.0-0.2); Basophils % 0.3 % (0.0-0.8); Eosinophils # 0.1 10*3/uL (0.0-0.87); Eosinophils % 0.6 % (0.00-10.9); Hematocrit 28.3 VOL% (42.0-52.0); Hemoglobin 9.1 GM/DL (14.0-18.0); Immature Granulocytes % 1.3 %; Immature Granulocytes Absolute 0.25 #; Lymphocytes # 1.7 10*3/uL (1.4-4.0); Lymphocytes % 8.7 % (21.2-54.2); Mean Corpuscular HGB Conc 32.2 GM/DL (32-36); Mean Platelet Volume 11.7 FL (9.6-12.0); Monocytes # 2.1 10*3/uL (0.11-0.8); Monocytes % 10.8 % (1.7-12.7); NRBC # 0.04 10*3/uL; Neutrophils % 78.3 % (38.7-73.9); Platelet Count 220 T/CUMM (130-400); Red Blood Count 3.11 MC/CUMM (3.8-5.5); Red Cell Distribution Width 18.9 % (9.3-17.3)
[2022-11-02 05:25] LABS: Albumin 1.6 G/DL (3.4-5.0); Bilirubin,Total 2.9 MG/DL (0.20-1.00); Calcium 8.8 MG/DL (8.5-10.1); Osmolality,Calculated 295.8 MOS/KG (273-304); Potassium 3.6 MMOL/L (3.5-5.1); Total Protein 6.8 G/DL (6.4-8.2)
[2022-11-02] MEDS: PIPERACILLIN/TAZOBACTAM 3,375 MG in SODIUM CHLORIDE 0.9% 100 ML IV SCH (05:57)
[2022-11-02] MEDS: ASPIRIN EC 81 MG TABLET PO SCH (08:31)
[2022-11-02] MEDS: carvediloL 25 MG TABLET PO SCH (08:32)
[2022-11-02] MEDS: ISOSORBIDE MONONITRATE 30 MG TABLET PO SCH (08:32)
[2022-11-02 11:51] VITALS: BP 112/57
== END 2022-11-02 14:30 | disposition hospice, home (50) | DRG 445 ==
LOC: N.ED 11:15 → N.EDINP 15:10 → SUATTDRO 15:10 → N.EDINP 16:35 → N.TELES 16:41
PROVIDERS: ADMIT Internal Medicine; ATTEND Hospitalist